=== PATIENT | female | born 2000 | race Caucasian/White ===

== ENCOUNTER 2022-06-17 10:21 | Outpatient (CLI) | payer MEDICAID, OTHER, SELFPAY ==
--- NOTE | 2022-06-17 10:33 | US_ITS ---
WS: [id number] ULTRASOUND OB COMPLETE TECHNIQUE: Complete ultrasound. CLINICAL INFORMATION: NORMAL FIRST PREG 2ND TRIMESTER COMPARISON: None. FINDINGS: Cervix measures 3.1 cm Single interuterine gestation is identified with breech presentation. Placenta is anterior fundal and posterior. Placenta grade 0. Normal amniotic fluid volume. cardiac activity: 147 BPM. AGA: 18w6d ABRAHAM by ultrasound: 11/12/2022 Estimated weight: 260 g; 0 lbs. 9 oz. (Percentile none available) BDP: 4.3 cm = 19w0d HC: 15.5 cm = 18w3d AC: 13.6 cm = 19w0d FEMUR LENGTH: 2.8 cm = 18w5d Anatomic survey: Anatomic survey is normal. Normal stomach. Kidneys and bladder are normal. Normal 3 vessel cord. Norm al 3 vessel cord insertion. Normal 4 chamber heart. Normal spine. Intracranial contents are normal. N ormal posterior fossa and cisterna magna. US/US OB >= 14 weeks fetus [id number] IMPRESSION: 1. Single intrauterine with visualized cardiac activity. AGA 18w6d w ith ABRAHAM 11/12/2022. 2. Placenta is anterior fundal and posterior. No evidence of abruption or prev ia. 3. Breech presentation 4. anatomic survey is normal. 5. Normal amniotic fluid volume.
== END 2022-06-17 10:22 | disposition home or self-care (01) ==
LOC: RAD 10:26
PROVIDERS: Visit Provider Family Medicine
DX: O32.1XX0 Maternal care for breech presentation, not applicable or unspecified (principal); Z3A.18 18 weeks gestation of pregnancy
CPT/HCPCS: 76805

== ENCOUNTER 2022-11-16 00:11 | Inpatient (IN) | payer MEDICAID, SELFPAY ==
[2022-11-15 20:04] VITALS: BP 104/65; PULSE 93; RESP 16; TEMP 36.6
[2022-11-15 20:10] VITALS: PULSE 80; RESP 16
[2022-11-15] MEDS: ampicillin 2,000 MG in sodium chloride 0.9% (plus) 50 ML 100 MG IV (20:40)
[2022-11-15] MEDS: dextrose 5%-lactated ringers 1,000 ML 125 ML IV (21:00)
[2022-11-15] MEDS: miSOPROStol 100 mcg tablet 25 MCG VAGINAL (21:01)
[2022-11-15 21:33] VITALS: BP 123/66; PULSE 76; RESP 16
[2022-11-15 22:02] VITALS: BMI 27.5
[2022-11-15 23:00] LABS: Basophils % 0.2 %; Eosinophils % 0.4 %; Hematocrit 33.6 % (37.0-47.0); Hemoglobin 10.7 g/dL (11.5-15.3); Lymphocytes % 20.5 %; Mean Corpuscular HGB Conc 31.8 g/dL (30.0-36.0); Mean Corpuscular Hemoglobin 26.9 pg (28.0-34.0); Mean Corpuscular Volume 84.4 fl (81-99); Mean Platelet Volume 11.1 fL (7.4-10.4); Monocytes # 0.7 10^3/uL (0.2-0.9); Monocytes % 7.4 %; Neutrophils % 70.7 %; Nucleated Red Blood Cells % 0 %; Platelet Count 201 10^3/cmm (130-400); Red Blood Count 3.98 10^6/uL (4.1-5.3); Red Cell Distribution Width 15.3 % (12.1-15.1); White Blood Count 9.5 10^3/uL (4.5-13.0)
[2022-11-15 23:04] VITALS: BP 125/65; PULSE 81
[2022-11-16] VITALS (25 sets, daily range): BP systolic 111–123; BP diastolic 55–76; PULSE 77–121; RESP 17–18; TEMP 36.2–36.8; O2SAT 96–100
[2022-11-16] MEDS: ampicillin 1,000 MG in sodium chloride 0.9% (plus) 50 ML 100 MG IV ×5 (00:07→15:51)
[2022-11-16] MEDS: miSOPROStol 100 mcg tablet 25 MCG VAGINAL ×2 (01:02→04:24)
[2022-11-16] MEDS: calcium carbonate 500 mg Chew Tablet 1000 MG PO (02:13)
[2022-11-16] MEDS: hyDROXYzine 25 mg Capsule 50 MG PO (04:39)
[2022-11-16] MEDS: lactated ringers 1,000 ML 999 ML IV (13:27)
--- NOTE | 2022-11-16 14:57 | ANES.PREANE2 ---
Pre-Anesthetic Assessment Height/Weight: Height 1.73 m Weight 82.1 kg Temp Pulse Resp BP Pulse Ox O2 Del Method 97.9 F 88 16 119/56 98 Room Air 11/16/22 01:36 11/16/22 14:56 11/15/22 21:33 11/16/22 14:56 11/16/22 14:49 11/16/22 12:28 Labor Pain Preop Diagnosis: Labor pain ANEL Was Beta Shannen taken within 24 hours: N/A Was Clonidine taken within 24 hours: N/A Social No alcohol and No tobacco Exam alert, oriented x 3, clear to auscultation bilaterally and regular rate & rhythm Airway Submandibular: within normal limits Cervical ROM: within normal limits Mallampati: Class II Dentition: full History/ROS No significant history except as noted and No significant complaints Pulmonary None reported CV/HEM None reported None reported Hepatic None reported GI Gastroesophageal Reflux Disease TUMS Metabolic None reported Musc/skel None reported Neuropsych Seizure Last Seizure approx a month ago Anesthetic Plan ASA status: 2 Anesthesia: Anesthesia Evaluation and Regional (specify below) Risk of > 500 ml blood loss (7ml/kg in children): No Medications/Allergies Current Medications Generic Name Dose Route Start Last Admin Trade Name Freq PRN Reason Stop Dose Admin Calcium Carbonate 1,000 mg 11/15/22 20:13 11/16/22 02:13 Calcium Carbonate 500 Mg Chew Tablet PO 1,000 mg Q4H PRN Administration Heartburn/Indigestion (Use 1st) Hydroxyzine Pamoate 50 mg 11/15/22 20:13 11/16/22 04:39 Hydroxyzine 25 Mg Capsule PO 50 mg QID PRN Administration sleep, agitation or itching Dextrose/Lactated Ringer's 1,000 mls @ 125 mls/hr 11/15/22 20:08 11/16/22 00:37 Dextrose 5%-Lactated Ringers IV 0 mls/hr .Q8H PRN Infusion per label comments Ampicillin Sodium 1,000 mg/ 50 mls @ 100 mls/hr 11/16/22 00:15 11/16/22 13:15 Sodium Chloride IV Infused Q4H CHERISE Infusion Protocol Lactated Ringer's 1,000 mls @ 999 mls/hr 11/16/22 13:05 11/16/22 13:27 Lactated Ringers IV 999 mls/hr .Q1H1M PRN Administration See label comments PFSH Anesthesia Female Reproductive History Date of last menstrual period: 02/05/22 : 1 Data Anesthesia 11/15/22 19:50 Short CBC 11/15/22 Range/Units 19:50 WBC 9.5 (4.5-13.0) 10^3/uL Hgb 10.7 L (11.5-15.3) g/dL Hct 33.6 L (37.0-47.0) % MCV 84.4 (81-99) fl Plt Count 201 (130-400) 10^3/cmm Neut % (Auto) 70.7 % Neut # (Auto) 6.70 (1.8-8.0) 10^3/uL Cardiac Studies: No Data to Display
--- NOTE | 2022-11-16 15:00 | P.ANES_ITS ---
Anesthesia Procedures Procedure/Date: 11/16/22 Epidural: Time Out Performed: Yes Consents Signed: Procedure Consent Consent: requested by attending/covering physician and from patient Lumbar Level: L3-L4 Epidural position: sitting Epidural procedure: sterile prep of area, 1% lidocaine to numb the area, 18 g needle, neg for paresthesia, test d ose given, 1.5% xylocaine 1:200k epi (4cc), 0.2% Ropivacaine bolus ml (4cc and Fentanyl 100mcg), placed PCEA, no systemic response, sterile dressing applied, L.U.D. no apparent complications and 0.2% Ropiavacaine @ mls/hr (10cc/hour. ZOIE at 8cm. Cath paced 2cm into epid space. Pt tolerated well)
--- NOTE | 2022-11-16 18:38 | P.HPUD_ITS ---
Labor & Delivery H&P Update Date of Procedure: November 16, 2022 Date H&P Performed: 11/10/22 Changes to previous documentation: None Admission Diagnosis: 21-year-old 1 at 40 weeks estimated gestational age presenting for induction Preop diagnosis: Labor pain Planned procedure: Induction with anticipation of a spontaneous vaginal delivery Other information: The patient is an otherwise healthy 21-year-old female who has had an unremarkable . She presented to the hospital for induction with Cytotec, with consideration for an amniotomy and Pitocin later as needed. Her blood type is O+. Her antibody screen was negative. She was GBS positive. And GBS protocol was initiated. She passed her glucose screen. Her sexually- transmitted infection profile was within normal limits. Related Problem List Diagnoses (1) 40 weeks gestation of : (2) Positive GBS test: A&P Assessment and plan (1) 40 weeks gestation of : The patient will be induced with Cytotec. GBS protocol will be initiated. Status: Acute (2) Positive GBS test: Status: Acute
--- NOTE | 2022-11-16 18:44 | P.PCNOB_ITS ---
Delivery Note: Date of delivery: November 16, 2022 Pre-delivery diagnoses: 1. 21-year-old 1 at 40 weeks estimated gestational age 2. GBS positive Post-delivery diagnoses: 1. Status post spontaneous vaginal delivery Procedure: Spontaneous vaginal delivery Delivering Physician: Abraham Multani Estimated blood loss (mL): 150 Pre-Delivery Course: The patient presented to the hospital for induction. Cytotec 25 mcg x 3 was initiated. An amniotomy was performed about 10 to 11 hours prior to delivery. Pitocin augmentation was initiated. An epidural was placed. She progressed to complete without difficulty. Delivery: DELIVERY: The patient progressed to complete without difficulty. She delivered a male with a weight of 8 pounds 5 ounces with Apgars of 6, 9. The baby was delivered from the PJ position and placed on the mother's abdomen. The cord was then clamped and cut around 1 minute after delivery. There was no nuchal cord. There was a body cord x1. There was no meconium. The placenta and 3 vessel cord were delivered intact shortly thereafter. The perineum and vaginal vault were carefully examined. Several small superficial vaginal wall lace rations were noted which were not bleeding.. Both the mother and the baby were in stable condition. Post-Delivery Status: Good A&P Assessment and plan (1) Positive GBS test: (2) 40 weeks gestation of : (3) Spontaneous vaginal delivery: I anticipate routine care. Coding Level of Care Code Acute Code for Chg Fwd Diagnoses Positive GBS test B95.1 40 weeks gestation of Z3A.40 Spontaneous vaginal delivery O80
[2022-11-17 02:00] VITALS: BP 105/62; PULSE 87; RESP 16; TEMP 36.6; O2SAT 97
--- NOTE | 2022-11-17 03:13 | PC.NURSE ---
Vitals Signs noted to be not registering from monitor. BP was observed to be WNL on monitor during roundings.
[2022-11-17 04:10] VITALS: BP 112/68; PULSE 82; RESP 14; O2SAT 96
[2022-11-17] MEDS: HYDROcodone-acetaminophen 5-325 mg Tablet PO ×2 (05:38→13:10)
--- NOTE | 2022-11-17 07:36 | P.DS_ITS ---
Discharge Providers WELDING MACHINE OPERATOR/TENDER Date of Admission: 11/16/22 00:11 Date of Discharge: 11/17/22 Attending Provider at Admission: Abraham Multani MD Attending Provider at Discharge: Abraham Multani MD Diagnoses at Discharge Discharge Diagnosis (1) Positive GBS test: Status: Acute (2) 40 weeks gestation of : Status: Acute (3) Spontaneous vaginal delivery: Status: Acute Reason for Visit Reason for Visit: IOL Hospital Course Hospital Course The patient presented to the hospital for induction. She received Cytotec 25 mcg x 3. An amniotomy was performed. Pitocin augmentation occurred. She progressed to complete and had an unremarkable delivery of a healthy appearing male . Her course was also unremarkable. Her bleeding has been within normal limits. Her pain is been well controlled. There have been no concerns. Information Peripartum Data: Infant Delivery Method: Vaginal Physical Exam Narrative: The patient is alert. She appears comfortable. Her heart has a regular rate and rhythm with no murmurs appreciated. Lungs are clear to auscultation bilaterally. Her fundus is firm and below the umbilicus. Urinary Catheter Management: Alfaro: Cath Placed During This Visit: yes Urinary Catheter Date of Insertion: 11/16/22 Urinary Catheter Time of Insertion: 16:05 Discharge Data Studies Completed and Pending Pending at discharge Category Date Time Status Hemagram Timed Lab 11/17/22 06:50 Uncollected Laboratory Results WBC 9.5 10^3/uL (4.5-13.0) 11/15/22 19:50 RBC 3.98 10^6/uL (4.1-5.3) L 11/15/22 19:50 Hgb 10.7 g/dL (11.5-15.3) L 11/15/22 19:50 Hct 33.6 % (37.0-47.0) L 11/15/22 19:50 MCV 84.4 fl (81-99) 11/15/22 19:50 MCH 26.9 pg (28.0-34.0) L 11/15/22 19:50 MCHC 31.8 g/dL (30.0-36.0) 11/15/22 19:50 RDW 15.3 % (12.1-15.1) H 11/15/22 19:50 Plt Count 201 10^3/cmm (130-400) 11/15/22 19:50 MPV 11.1 fL (7.4-10.4) H 11/15/22 19:50 Neut % (Auto) 70.7 % 11/15/22 19:50 Lymph % (Auto) 20.5 % 11/15/22 19:50 [place] % (Auto) 7.4 % 11/15/22 19:50 Eos % (Auto) 0.4 % 11/15/22 19:50 Baso % (Auto) 0.2 % 11/15/22 19:50 Neut # (Auto) 6.70 10^3/uL (1.8-8.0) 11/15/22 19:50 Lymph # (Auto) 2.0 10^3/uL (1.5-6.5) 11/15/22 19:50 [place] # (Auto) 0.7 10^3/uL (0.2-0.9) 11/15/22 19:50 Eos # (Auto) 0.0 10^3/uL (0.0-0.8) 11/15/22 19:50 Baso # (Auto) 0.0 10^3/uL (0.0-0.1) 11/15/22 19:50 Nucleated RBC % (auto) 0 % 11/15/22 19:50 Nucleated RBCs # 0.0 /100WBC 11/15/22 19:50 Vitals Last Vital Signs Temp 97.8 F 11/17/22 02:00 Pulse 82 11/17/22 04:10 Resp 14 11/17/22 04:10 BP 112/68 11/17/22 04:10 Pulse Ox 96 11/17/22 04:10 O2 Del Method Room Air 11/17/22 04:10 Discharge Plan Discharge Patient Disposition: Home Condition: Stable Prescriptions: New ibuprofen 800 mg Tablet 800 mg PO TID Qty: 45 0RF -U 106.5-1 mg Capsule 1 cap PO DAILY Qty: 90 0RF Discharge Orders: Discharge Order (Routine); Ordered 11/17/22 Ordered By: Abraham Multani Referrals: Abraham Multani MD [Physician] - 6 Weeks Discharge Diet: Usual diet Discharge Activity: Resume usual activity Patient Instructions: Opioid Safety Discharge Attestations WELDING MACHINE OPERATOR/TENDER Time Spent in Discharge Care*: less than 30 min Coding Level of Care Code Acute Code for Chg Fwd Diagnoses Positive GBS test B95.1 40 weeks gestation of Z3A.40 Spontaneous vaginal delivery O80
[2022-11-17 08:08] LABS: Hematocrit 31.3 % (37.0-47.0); Mean Corpuscular HGB Conc 31.9 g/dL (30.0-36.0); Mean Corpuscular Hemoglobin 27.1 pg (28.0-34.0); Mean Corpuscular Volume 84.8 fl (81-99); Mean Platelet Volume 10.6 fL (7.4-10.4); Platelet Count 157 10^3/cmm (130-400); Red Blood Count 3.69 10^6/uL (4.1-5.3); Red Cell Distribution Width 15.3 % (12.1-15.1); White Blood Count 12.2 10^3/uL (4.5-13.0)
[2022-11-17] MEDS: ibuprofen 800 mg tablet PO ×3 (09:21→20:48)
[2022-11-17] MEDS: docusate sodium 100 mg Capsule PO ×2 (09:21→20:48)
[2022-11-17] MEDS: prenatal vitamin Capsule 1 CAP PO (10:03)
[2022-11-17 10:20] VITALS: BP 108/73; PULSE 78; TEMP 36.4; O2SAT 98
--- NOTE | 2022-11-17 11:43 | ANE.PACU2 ---
Inpatient post-anesthesia follow up: Airway intact: Yes Vital signs: Temperature 97.6 F Pulse Rate 78 Respiratory Rate 14 Blood Pressure 108/73 Pulse Oximetry 98 Oxygen Delivery Me thod Room Air Oxygen Flow Rate Fraction of Inspir ed Oxygen Hydration adequate: Yes Nausea and vomiting: No Pain level: 2 Mental status: Baseline
[2022-11-17 15:47] VITALS: BP 111/64; PULSE 67; RESP 16; TEMP 36.8; O2SAT 98
[2022-11-17] MEDS: measles,mumps,rubella pf Vial (w/diluent) 0.5 ML SUBCUT (17:21)
[2022-11-17 20:11] VITALS: BP 116/74; PULSE 96; RESP 16; TEMP 37; O2SAT 98
== END 2022-11-17 21:12 | disposition home or self-care (01) | DRG 807 ==
LOC: OPOB 00:11 → OBGYN 00:11
PROVIDERS: Admitting Provider Family Medicine; Visit Provider Family Medicine
DX: O99.824 Streptococcus B carrier state complicating childbirth (principal); Z37.0 Single live birth; Z3A.40 40 weeks gestation of pregnancy; O69.89X0 Labor and delivery complicated by other cord complications, not applicable or unspecified
CPT/HCPCS: 36415; 51702; 59409; 85025; 85027; 90707; 96372; J0290; J3010; J7040; J7120; J7121